=== PATIENT | female | born 2000 | race Two or more races ===

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

== ENCOUNTER 2022-01-10 22:43 | Emergency (ER) | payer MEDICAID ==
[~2022-01-10] VITALS: Ht 160 cm; Wt 91.5 kg
[2022-01-10 23:24] VITALS: BP 137/69
[2022-01-11] MEDS ORDERED: DIPHTH,PERTUSS(ACELL),TET TOX 0.5 ML DISP.SYRIN. VAX IM ONE
--- NOTE | 2022-01-11 00:14 | PHYS DOC ---
Past History Past Medical History: Anxiety, Depression Additional Past Medical Histor: Previous SI attempts, PTSD Past Surgical History: No Surgical History Smoking: Cigarettes Alcohol Use: None Drug Use: None, Marijuana General Adult EDM: Chief Complaint: LACERATION/AVULSION HPI: HPI: Patient is a 22-year-old female coming in for a laceration to her left volar forearm. Patient states she was reaching out and scraped it on a tool. Patient states it happened about 11 hours prior to arrival. States she was unable to get a ride to the emergency department just wrapped it up. Patient did not wash it out states she only wiped it off and then bandaged it. He states that the tools were rachel and dirty. Last tetanus greater than 5 years ago. Review of Systems: Review of Systems: All other systems within normal limits except for as noted in the HPI Current Medications: Current Meds: Current Medications Medications (Trade) Dose Ordered Sig/Justin Start Time Stop Time Status Last Admin Dose Admin Diphtheria/ Tetanus/Acell Pertussis (Boostrix) 0.5 ml ONCE ONCE 01/11/22 00:00 01/11/22 00:01 DC Allergies: Allergies: Allergies Coded Allergies Type Severity Reaction Last Updated Verified No Known Drug Allergies 01/10/22 No Physical Exam: PE: Constitutional: Well developed, well nourished, no acute distress, non-toxic appearance. [] HENT: Normocephalic, atraumatic, bilateral external ears normal, nose normal. [] Eyes: PERRLA, conjunctiva normal, no discharge. [] Neck: No rigidity, supple, no stridor. [] Cardiovascular: Regular rate and rhythm, brisk cap refill [] Lungs & Thorax: Non labored symmetric respirations, no tachypnea or respiratory distress [] Abdomen: Soft, nondistended. Skin: Warm, dry, no erythema, no rash. Laceration on left forearm: Approximately 5 cm long and 2 mm deep with tried blood at base [] Back: Unremarkable Extremities: No deformities, range of motion grossly intact, no lower extremity edema [] Neurologic: Alert and oriented X 3, no focal deficits noted. [] Psychologic: Affect normal, judgement normal, mood normal. [] Current Patient Data: Vital Signs: Vital Signs Date Time Temp Pulse Resp B/P (MAP) Pulse Ox O2 Delivery O2 Flow Rate FiO2 01/10/22 23:24 99.0 88 18 137/69 (91) 100 EKG: EKG: [] Radiology/Procedures: Radiology/Procedures: Schedule patient the risks of suturing laceration since it is contaminated with dried blood on top of it with rachel bacterial. It is also very superficial. Approximated loosely with Steri-Strips and tetanus updated. [] Heart Score: C/O Chest Pain: No Risk Factors: Risk Factors: DM, Current or recent (<one month) smoker, HTN, HLP, family history of CAD, obesity. Risk Scores: Score 0 - 3: 2.5% MACE over next 6 weeks - Discharge Home Score 4 - 6: 20.3% MACE over next 6 weeks - Admit for Clinical Observation Score 7 - 10: 72.7% MACE over next 6 weeks - Early Invasive Strategies Course & Med Decision Making: Course & Med Decision Making Pertinent Labs and Imaging studies reviewed. (See chart for details) [] Dragon Disclaimer: Dragon Disclaimer: This electronic medical record was generated, in whole or in part, using a voice recognition dictation system. Patient states that the laceration was purely accidental and was not intended for self-harm. Departure Departure: Impression: Primary Impression: Laceration of forearm Disposition: HOME / SELF CARE / HOMELESS Condition: STABLE Referrals: PCP,NO (PCP) Patient Instructions: Laceration, Old, Not Sutured PIYUSH MELISSA MD January 11, 2022 00:14
== END 2022-01-11 00:20 | disposition home or self-care (01) ==
LOC: ER 22:43
DX: S51.812A Laceration without foreign body of left forearm, initial encounter (principal); F17.210 Nicotine dependence, cigarettes, uncomplicated; W26.8XXA Contact with other sharp object(s), not elsewhere classified, initial encounter; Y93.89 Activity, other specified; Y92.89 Other specified places as the place of occurrence of the external cause; Y99.8 Other external cause status
CPT/HCPCS: 90471; 90715; 99283